=== PATIENT | female | born 1970 | race Caucasian/White ===

== ENCOUNTER → 2022-04-19 | Outpatient (CLI) | payer OTHER ==
--- NOTE | 2022-05-04 08:59 | Diagnostic Imaging Report ---
Indication: Routine screening. Correlation is made with prior mammogram 04/14/2021 and 12/10/2019. 2-D and 3-D bilateral screening mammography was performed with CAD. CAD is utilized. The current study was also evaluated with a Computer Aided Detection (CAD) system. Scattered fibroglandular densities are identified bilaterally. The parenchymal pattern appears stable. No dominant mass or malignant-appearing microcalcifications are seen. Axillae are unremarkable. IMPRESSION: BI-RADS Category 1 No mammographic features suspicious for malignancy are identified. ACR BI-RADS Category 1: Negative. Result letter will be mailed to the patient. Note: At least 10% of breast cancer is not imaged by mammography. Dictated by: Dictated on workstation # [id number]
== END ==
LOC: RAD 10:04
PROVIDERS: ATTEND Nurse Practitioner
DX: Z12.31 Encounter for screening mammogram for malignant neoplasm of breast (principal)
CPT/HCPCS: 77063; 77067

== ENCOUNTER 2022-10-16 14:15 | Emergency (ER) | payer OTHER ==
[~2022-10-16] VITALS: Ht 170.2 cm; Wt 104.3 kg
[2022-10-16] MEDS ORDERED: KETOROLAC 15 MG/ML VIAL IVP STA (14:29)
--- NOTE | 2022-10-16 14:37 | ED Cardiac General ---
History of Present Illness General Chief Complaint: Cardiac/General Problems Stated Complaint: BP ISSUES Source: patient History of Present Illness Date Seen by Provider: Oct 16, 2022 Time Seen by Provider: 14:19 Initial Comments 52-year-old female presenting with complaints of feeling dizzy since waking up this morning. She has intermittently had pressure in her chest as well. She reports having a generalized headache that is worse behind her eyes. She reports taking her blood pressure at home several times and her bottom diastolic number was as high as 112 and she reports that she could never get her bottom number under 80. She had called the [facility] because she follows with the local [facility] here in [place]. When she reached someone at the [facility] and told them her symptoms they told her to call an ambulance and be evaluated [facility]. She did not feel like she needed an ambulance of she had family bring her to the emergency department. She states that she takes losartan and Metformin as well as a medicine for migraine headaches. She reports medical problems of Diabetes controlled with Metformin and diet, and Hypertension as well as migraine headaches. She states her current headache is a pressure and is not like her usual Migraine headaches. Timing/Duration: 4-6 hours Severity: moderate Activities at Onset: none Prior CP/Workup: no prior cardiac workup Modifying Factors: worse with exercise (activity makes her chest pressure worse) NTG SL CRUISE COUNSELOR: No ASA po CRUISE COUNSELOR: No Associated Systoms: Chest Pain (pressure like someone is sitting on her chest intermittently, none currently on arrival to the ED); No Cough, No Diaphoresis, No Fever/Chills; Headaches; No Loss of Appetite, No Malaise, No Nausea/Vomiting, No Rash, No Seizure, No Shortness of Air, No Syncope, No Weakness Allergies and Home Medications Allergies Coded Allergies: cephalexin (Verified Allergy, Severe, Anaphylaxis, 10/16/22) lisinopril (Verified Adverse Reaction, Intermediate, 10/16/22) Cough Patient Home Medication List Home Medication List Reviewed: Yes Review of Systems Review of Systems Constitutional: No chills; dizziness; No fever EENTM: No Blurred Vision, No Nose Congestion, No Nose Pain Respiratory: Denies Cough, Denies Shortness of Air Cardiovascular: See HPI Gastrointestinal: Denies Nausea, Denies Vomiting Genitourinary: No Symptoms Reported Musculoskeletal: no symptoms reported Skin: no symptoms reported Psychiatric/Neurological: See HPI Past Epdrhxh-[id number]-Qoipkq Hx Patient Social History Tobacco Use?: No Smoking Status: Never a Smoker Smokeless Tobacco Frequency: Never a User Use of E-Cig and/or Vaping dev: No Use of E-Cig and/or Vaping Goldy: Never a User Substance use?: No Alcohol Use?: Yes Alcohol Frequency: Rarely Pt feels they are or have been: No Past Medical History Surgery/Hospitalization HX: Hypertension, Migraine Headaches, Diabetes controlled with Metformin Physical Exam Vital Signs Vital Signs - First Documented 10/16/22 14:16 Temp 36.4 Pulse 90 Resp 17 B/P (MAP) 145/88 (107) Pulse Ox 98 O2 Delivery Room Air Capillary Refill : Less Than 3 Seconds Height, Weight, BMI Height: '" Weight: lbs. oz. 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 Norm as Tested Skin: Normal Color, Warm/Dry Progress/Results/Core Measures Results/Orders Lab Results Laboratory Tests Test 10/16/22 14:24 10/16/22 14:57 Range/Units White Blood Count 7.8 4.3-11.0 10^3/uL Red Blood Count 5.10 3.80-5.11 10^6/uL Hemoglobin 13.5 11.5-16.0 g/dL Hematocrit 42 35-52 % Mean Corpuscular Volume 82 80-99 fL Mean Corpuscular Hemoglobin 27 25-34 pg Mean Corpuscular Hemoglobin Concent 32 32-36 g/dL Red Cell Distribution Width 14.2 10.0-14.5 % Platelet Count 244 130-400 10^3/uL Mean Platelet Volume 9.5 9.0-12.2 fL Immature Granulocyte % (Auto) 0 % Neutrophils (%) (Auto) 40 L 42-75 % Lymphocytes (%) (Auto) 48 H 12-44 % Monocytes (%) (Auto) 8 0-12 % Eosinophils (%) (Auto) 3 0-10 % Basophils (%) (Auto) 1 0-10 % Neutrophils # (Auto) 3.1 1.8-7.8 10^3/uL Lymphocytes # (Auto) 3.7 1.0-4.0 10^3/uL Monocytes # (Auto) 0.6 0.0-1.0 10^3/uL Eosinophils # (Auto) 0.3 0.0-0.3 10^3/uL Basophils # (Auto) 0.1 0.0-0.1 10^3/uL Immature Granulocyte # (Auto) 0.0 0.0-0.1 10^3/uL Prothrombin Time 13.0 12.2-14.7 SEC INR Comment 0.9 0.8-1.4 Activated Partial Thromboplast Time 30 24-35 SEC Sodium Level 140 135-145 MMOL/L Potassium Level 3.9 3.6-5.0 MMOL/L Chloride Level 102 98-107 MMOL/L Carbon Dioxide Level 25 21-32 MMOL/L Anion Gap 13 5-14 MMOL/L Blood Urea Nitrogen 8 7-18 MG/DL Creatinine 0.71 0.60-1.30 MG/DL Estimat Glomerular Filtration Rate 102 BUN/Creatinine Ratio 11 Glucose Level 104 70-105 MG/DL Calcium Level 9.3 8.5-10.1 MG/DL Corrected Calcium 9.0 8.5-10.1 MG/DL Magnesium Level 2.5 H 1.6-2.4 MG/DL Total Bilirubin 0.5 0.1-1.0 MG/DL Aspartate Amino Transf (AST/SGOT) 20 5-34 U/L Alanine Aminotransferase (ALT/SGPT) 22 0-55 U/L Alkaline Phosphatase 59 40-136 U/L Troponin I < 0.30 <0.30 NG/ML Pro-B-Type Natriuretic Peptide 148.6 H <125.0 PG/ML Total Protein 7.1 6.4-8.2 GM/DL Albumin 4.4 3.2-4.5 GM/DL Lipase 22 8-78 U/L Urine Color YELLOW Urine Clarity CLEAR Urine pH 7.5 5-9 Urine Specific [place] 1.010 L 1.016-1.022 Urine Protein NEGATIVE NEGATIVE Urine Glucose (UA) NEGATIVE NEGATIVE Urine Ketones NEGATIVE NEGATIVE Urine Nitrite NEGATIVE NEGATIVE Urine Bilirubin NEGATIVE NEGATIVE Urine Urobilinogen 0.2 < = 1.0 MG/DL Urine Leukocyte Esterase NEGATIVE NEGATIVE Urine RBC (Auto) NEGATIVE NEGATIVE Urine RBC 2-5 H /HPF Urine WBC 0-2 /HPF Urine Squamous Epithelial Cells 5-10 /HPF Urine Crystals NONE /LPF Urine Bacteria TRACE /HPF Urine Casts NONE /LPF Urine Mucus MODERATE H /LPF Urine Culture Indicated NO My Orders Orders - LAYO CELAYA MD Cbc With Automated Diff (10/16/22 14:29) Magnesium (10/16/22 14:29) Chest 1 View Ap/Pa Only (10/16/22 14:29) Ekg Tracing (10/16/22 14:29) Comprehensive Metabolic Panel (10/16/22 14:29) Protime With Inr (10/16/22 14:29) Partial Thromboplastin Time (10/16/22 14:29) O2 (10/16/22 14:29) Monitor-Rhythm Ecg Trace Only (10/16/22 14:29) Ed Iv/Invasive Line Start (10/16/22 14:29) Lipase (10/16/22 14:29) Troponin I Fs (10/16/22 14:29) Probnp Fs (10/16/22 14:29) Ua Culture If Indicated (10/16/22 14:29) Ketorolac Injection (Toradol Injection) (10/16/22 14:29) Vital Signs/I&O 10/16/22 10/16/22 10/16/22 14:16 14:16 15:34 Temp 36.4 36.0 Pulse 90 81 Resp 17 16 B/P (MAP) 145/88 (107) 108/74 Pulse Ox 98 99 O2 Delivery Room Air Room Air Room Air Progress Progress Note #1: Progress Note Potential diagnosis of hypertensive urgency, hypertensive emergency, myocardial infarction, congestive heart failure, electrolyte imbalance, anxiety. Obtain peripheral IV access and send labs for complete blood count, comprehensive metabolic profile, magnesium, troponin, proBNP, coagulation factors. Obtain urinalysis to look for signs of hydration and UTI. Obtain 1 view chest x-ray to look for acute pathology in her chest that might be contributing to elevating her blood pressure. Placed on cardiac surveillance monitor and initially her monitor was showing sinus rhythm with heart rate in the 80s without ectopy or ischemia. Obtain electrocardiogram to further evaluate her heart rate and rhythm. Administer ketorolac 15 mg IV for the headache and pressure. On arrival her blood pressure was 148/88 on recheck it was 130/90. Heart rates in the 80s and sinus rhythm. Oxygen saturations 100% on room air. She is afebrile. The dizziness which is her main complaint along with the intermittent chest pressure and headache pressure may be related back to an electrolyte imbalance or dehydration. Currently her blood pressure does not appear to be high enough that it would be causing the symptoms for her. Progress Note #2: Time: 14:43 Progress Note On my personal interpretation and review of her 1 view chest x-ray does not show any acute infiltrate or cardiomegaly. Her electrocardiogram did not show any acute ischemia and was sinus rhythm. 1506 her complete blood count was normal with white blood cell count of 7.8. Hemoglobin was normal at 13.5. Her comprehensive metabolic profile at her normal sodium 140, potassium 3.9, BUN of 8, 0.71 creatinine, glucose of 104, magnesium slightly high at 2.5. Her troponin was negative at less than 0.3 and I considered this a delta troponin for her since she had symptoms since waking up this am. Her coagulation factors were all within normal range without showing signs of coagulopathy. Her urinalysis had a specific gravity of 1.010 with some mucus but no nitrites, leukocyte esterase, white blood cells, bacteria . Her blood pressure is come down to 108/74 on its own without any additional medicine or treatment. Her heart rate remains in the 80s and a sinus rhythm. Her oxygen saturation continues to be 97 to 100% on room air. Will review findings and results with the patient and see if the Toradol made any difference with the pressure in her head. If she continues to feel dizzy I could offer some IV fluids for additional hydration and we will try some meclizine for dizziness. After discussing test results with the patient and reviewing negative findings as well as seeing that her blood pressure was down to a level that is more consistent with her history of blood pressure readings that she usually gets, she felt that she did not need IV fluids as she drinks 120-140 ounces of watera day. She also declined antihistamine or meclizine as she has antihistamines from [facility] for seasonal allergies. Encouraged to check back with the [facility] this week and return or seek medical care if she is having worsening or new concerns and symptoms. In the meantime try and rest and stay well-hydrated at home. [facility] Initial ECG Impression Date: Oct 16, 2022 Initial ECG Impression Time: 14:23 Initial ECG Rate: 93 Initial ECG Rhythm: Normal Sinus Initial ECG Comparisson: No Previous ECG Available Comment Based on my personal interpretation and review her electrocardiogram shows a normal sinus rhythm with a heart rate of 93 bpm. IN interval 162 ms. She has no acute ST elevation. QT interval 369 ms with a QTc interval 420 ms. She has no prior tracings available for comparison. Diagnostic Imaging Diagonstic Imaging: Xray Plain Films/CT/US/NM/MRI: chest Comments NAME: JASMYN MULLER MED REC#: [id number] PT STATUS: REG ER : 1970 PHYSICIAN: LAYO CELAYA MD ADMIT DATE: 10/16/22/ER FS Draft Date of Exam:10/16/22 CHEST 1 VIEW AP/PA ONLY EXAMINATION: Chest 1 view. HISTORY: Chest pressure. COMPARISON: None available. FINDINGS: Heart size and pulmonary vasculature are normal. The lungs are clear without consolidation, pleural effusion, or pneumothorax. Degenerative changes of the thoracic spine. Osseous structures are otherwise intact. IMPRESSION: No acute radiographic abnormality in the chest. Dictated on workstation # [id number] Dict: 10/16/22 1446 Trans: 10/16/22 1446 [facility] [id number] Interpreted by: NAHID CHOPRA DO Electronically signed by: Reviewed: Reviewed by Me (I reviewed the radiologist report at [id number]) Departure Impression Primary Impression: Dizziness Additional Impressions: Labile hypertension Chest pressure Disposition: 01 HOME, SELF-CARE Condition: Improved Departure-Patient Inst. Decision time for Depature: 15:27 Referrals: USMAN LOGAN (PCP/Family) Primary Care Physician Patient Instructions: High Blood Pressure ED, Dizziness, Nonvertigo, (DC) Add. Discharge Instructions: Your blood tests, urinalysis, electrocardiogram and chest xray had all looked ok today and did not show any signs of heart attack or heart damage, infection, dehydration, electrolyte issues. Consider trying an antihistamine for the dizziness and head pressure in case it is related to sinus issues or congestion. [facility] Return or seek medical care for worsening problems or more concerns. Continue to take your regular medicines as prescribed and stay well hydrated with plenty of water. All discharge instructions reviewed with patient and/or family. Voiced understanding. LAYO CELAYA MD Oct 16, 2022 14:37
[2022-10-16 14:39] LABS: BASOPHILS # (AUTO) 0.1 10^3/uL (0.0-0.1); BASOPHILS % (AUTO) 1 % (0-10); EOSINOPHILS # (AUTO) 0.3 10^3/uL (0.0-0.3); EOSINOPHILS % (AUTO) 3 % (0-10); HEMATOCRIT 42 % (35-52); HEMOGLOBIN 13.5 g/dL (11.5-16.0); LYMPHOCYTES # (AUTO) 3.7 10^3/uL (1.0-4.0); LYMPHOCYTES % (AUTO) 48 % (12-44); MEAN CORPUSCULAR HEMOGLOBIN 27 pg (25-34); MEAN CORPUSCULAR HGB CONC 32 g/dL (32-36); MEAN CORPUSCULAR VOLUME 82 fL (80-99); MEAN PLATELET VOLUME 9.5 fL (9.0-12.2); MONOCYTES # (AUTO) 0.6 10^3/uL (0.0-1.0); MONOCYTES % (AUTO) 8 % (0-12); NEUTROPHILS # (AUTO) 3.1 10^3/uL (1.8-7.8); NEUTROPHILS % (AUTO) 40 % (42-75); PLATELET COUNT 244 10^3/uL (130-400); WHITE BLOOD COUNT 7.8 10^3/uL (4.3-11.0)
--- NOTE | 2022-10-16 14:47 | Diagnostic Imaging Report ---
EXAMINATION: Chest 1 view. HISTORY: Chest pressure. COMPARISON: None available. FINDINGS: Heart size and pulmonary vasculature are normal. The lungs are clear without consolidation, pleural effusion, or pneumothorax. Degenerative changes of the thoracic spine. Osseous structures are otherwise intact. IMPRESSION: No acute radiographic abnormality in the chest. Dictated by: Dictated on workstation # [id number]
[2022-10-16 14:54] LABS: ALANINE AMINOTRANSFERASE 22 U/L (0-55); ALBUMIN 4.4 GM/DL (3.2-4.5); ALKALINE PHOSPHATASE 59 U/L (40-136); BILIRUBIN,TOTAL 0.5 MG/DL (0.1-1.0); BUN/CREATININE RATIO 11; CALCIUM 9.3 MG/DL (8.5-10.1); CARBON DIOXIDE 25 MMOL/L (21-32); CHLORIDE 102 MMOL/L (98-107); CREATININE SERUM 0.71 MG/DL (0.60-1.30); GFR ESTIMATED 102; GLUCOSE 104 MG/DL (70-105); INR 0.9 (0.8-1.4); LIPASE 22 U/L (8-78); MAGNESIUM 2.5 MG/DL (1.6-2.4); POTASSIUM 3.9 MMOL/L (3.6-5.0); SODIUM 140 MMOL/L (135-145); TOTAL PROTEIN 7.1 GM/DL (6.4-8.2)
[2022-10-16 15:06] LABS: BILIRUBIN,URINE NEGATIVE (NEGATIVE); CLARITY,URINE CLEAR; COLOR,URINE YELLOW; GLUCOSE, URINE (UA) NEGATIVE (NEGATIVE); KETONES,URINE NEGATIVE (NEGATIVE); LEUKOCYTE ESTERASE ,URINE NEGATIVE (NEGATIVE); NITRITE,URINE NEGATIVE (NEGATIVE); PH,URINE 7.5 (5-9); PROTEIN,URINE NEGATIVE (NEGATIVE)
[2022-10-16 15:08] LABS: BACTERIA,URINE TRACE /HPF; WBC,URINE 0-2 /HPF
[2022-10-16 15:34] VITALS: BP 108/74
== END 2022-10-16 15:34 | disposition home or self-care (01) ==
LOC: EDUNIT# 14:15 → ER FS 14:19
DX: I10 Essential (primary) hypertension (principal); R07.89 Other chest pain; E11.9 Type 2 diabetes mellitus without complications; E66.9 Obesity, unspecified; Z79.84 Long term (current) use of oral hypoglycemic drugs; Z79.899 Other long term (current) drug therapy; Z88.9 Allergy status to unspecified drugs, medicaments and biological substances; Z68.36 Body mass index [BMI] 36.0-36.9, adult
CPT/HCPCS: 36415; 71045; 80053; 81000; 83690; 83735; 83880; 84484; 85025; 85610; 85730; 93005; 93041